=== PATIENT | male | born 1965 | race Caucasian/White ===

== ENCOUNTER 2021-01-27 09:13 | Emergency (ER) | payer BC ==
[~2021-01-27] VITALS: Ht 182.9 cm; Wt 125.0 kg
[2021-01-27 09:34] VITALS: BP 140/113
[2021-01-27 10:22] LABS: CALCIUM 8.7 mg/dL (8.5-10.1); CREATININE 0.9 mg/dL (0.7-1.3); GFR 87.3; POTASSIUM 4.3 mmol/L (3.5-5.1)
[2021-01-27 10:26] LABS: BASO # 0.1 x10^3/uL (0.0-0.2); BASO % 1 % (0-3); EOS # 0.1 x10^3/uL (0.0-0.7); EOS % 2 % (0-3); HEMATOCRIT 45.2 % (39.0-53.0); HEMOGLOBIN 15.4 g/dL (13.0-17.5); LYMPH # 1.9 x10^3/uL (1.0-4.8); LYMPH % 29 % (24-48); MEAN CORPUSCULAR HEMOGLOBIN 30 pg (25-35); MEAN CORPUSCULAR HGB CONC 34 g/dL (31-37); MEAN CORPUSCULAR VOLUME 89 fL (79-100); MONO # 0.5 x10^3/uL (0.0-1.1); MONO % 8 % (0-9); NEUT % 61 % (31-73); PLATELET COUNT 297 x10^3/uL (140-400); RED BLOOD COUNT 5.09 x10^6/uL (4.30-5.70); RED CELL DISTRIBUTION WIDTH 13.8 % (11.5-14.5); WHITE BLOOD COUNT 6.5 x10^3/uL (4.0-11.0)
[2021-01-27 10:28] LABS: ALBUMIN 3.9 g/dL (3.4-5.0); ALBUMIN/GLOBULIN RATIO 1.1 (1.0-1.7); TOTAL BILIRUBIN 0.5 mg/dL (0.2-1.0); TOTAL PROTEIN 7.3 g/dL (6.4-8.2)
--- NOTE | 2021-01-27 10:43 | PHYS DOC ---
Past History Past Medical History: High Cholesterol, Hypertension Adult General Chief Complaint Chief Complaint: CHEST PAIN HPI HPI Patient is a 56-year-old male presenting for chest pain. This is been a chronic problem but he has noticed it with increased frequency over past 2 weeks without any known inciting event, trauma, exposure or ingestion. Physical exertion makes worse. Patient reports whenever he is trying to lift heavy objects or walk at an incline he experiences sharp substernal chest pain that radiates to bilateral neck and left shoulder. Reports he has never had issues with physical exertion but reports that this is happening more frequently over past 2 weeks. States it got so bad that he typically has to stop and catch his breath when walking up an incline or walking upstairs which he has never done in the past. No prior cardiovascular history but admits taking medications for high blood pressure and hypercholesterol, does state that he recently moved from [place] and has been out of his medications recently. No prior stress test or heart cath. Does not smoke but has positive family history of early cardiac disease in his father. No hemoptysis, fever, recent sick contacts, long distance travel, ripping or tearing sensation in chest Review of Systems Review of Systems Fourteen body systems of review of systems have been reviewed. See HPI for pe rtinent positives and negative responses, other ulrich all other systems are negative, non-pertinent or non-contributory Physical Exam Physical Exam Constitutional: Well developed, well nourished, no acute distress, non-toxic appearance. HENT: Normocephalic, atraumatic, bilateral external ears normal, oropharynx moist, no oral exudates, nose normal. Eyes: PERRLA, EOMI, conjunctiva normal, no discharge. Neck: Normal range of motion, no tenderness, supple, no stridor. Cardiovascular: Heart rate regular, sinus rhythm, no murmurs rubs or gallops Lungs & Thorax: Bilateral breath sounds clear to auscultation Abdomen: Bowel sounds normal, soft, no tenderness, no masses, no pulsatile masses. Nonsurgical abdomen, no peritoneal signs Skin: Warm, dry, no erythema, no rash. Back: No tenderness, no CVA tenderness. Extremities: No tenderness, no cyanosis, no clubbing, ROM intact, no edema. Neurologic: Alert and oriented X 3, grossly normal motor & sensory function, no focal deficits noted. Psychologic: Affect normal, judgement normal, mood normal. Current Patient Data Vital Signs Vital Signs Date Time Temp Pulse Resp B/P (MAP) Pulse Ox O2 Delivery O2 Flow Rate FiO2 01/27/21 09:34 97.9 75 18 140/113 97 Vital Signs Date Time Temp Pulse Resp B/P (MAP) Pulse Ox O2 Delivery O2 Flow Rate FiO2 01/27/21 09:34 97.9 75 18 140/113 97 Lab Results Laboratory Tests Test 01/27/21 09:57 01/27/21 12:34 White Blood Count 6.5 x10^3/uL Red Blood Count 5.09 x10^6/uL Hemoglobin 15.4 g/dL Hematocrit 45.2 % Mean Corpuscular Volume 89 fL Mean Corpuscular Hemoglobin 30 pg Mean Corpuscular Hemoglobin Concent 34 g/dL Red Cell Distribution Width 13.8 % Platelet Count 297 x10^3/uL Neutrophils (%) (Auto) 61 % Lymphocytes (%) (Auto) 29 % Monocytes (%) (Auto) 8 % Eosinophils (%) (Auto) 2 % Basophils (%) (Auto) 1 % Neutrophils # (Auto) 4.0 x10^3uL Lymphocytes # (Auto) 1.9 x10^3/uL Monocytes # (Auto) 0.5 x10^3/uL Eosinophils # (Auto) 0.1 x10^3/uL Basophils # (Auto) 0.1 x10^3/uL Sodium Level 139 mmol/L Potassium Level 4.3 mmol/L Chloride Level 104 mmol/L Carbon Dioxide Level 27 mmol/L Anion Gap 8 Blood Urea Nitrogen 12 mg/dL Creatinine 0.9 mg/dL Estimated GFR (Cockcroft-Gault) 87.3 BUN/Creatinine Ratio 13 Glucose Level 125 mg/dL Calcium Level 8.7 mg/dL Total Bilirubin 0.5 mg/dL Aspartate Amino Transf (AST/SGOT) 26 U/L Alanine Aminotransferase (ALT/SGPT) 46 U/L Alkaline Phosphatase 97 U/L Troponin I Quantitative < 0.017 ng/mL < 0.017 ng/mL Total Protein 7.3 g/dL Albumin 3.9 g/dL Albumin/Globulin Ratio 1.1 Current Medications Medications (Trade) Dose Ordered Sig/Rich Route PRN Reason Start Time Stop Time Status Last Admin Dose Admin Aspirin (Aspirin Chewable) 324 mg 1X ONCE PO 8/16/21 10:45 01/27/21 11:12 DC 01/27/21 10:45 EKG EKG EKG ordered and interpreted by myself at 0920 hrs. as sinus rhythm at 72 bpm, unremarkable intervals, no axis deviation, no acute ischemic findings, no STEMI Radiology/Procedures Radiology/Procedures XR CHEST 1V CLINICAL INDICATIONS: Reason: chest discomfort COMPARISON: None available. Findings: No acute lung infiltrate or pleural effusion or pulmonary edema or lung mass or pneumothorax is seen. The heart size, pulmonary vasculature, mediastinum and both josue are unremarkable. IMPRESSION: No acute radiographic abnormality is seen. Electronically signed by: Lucien Vazquez MD (01/27/2021 10:57 AM) [id number] Heart Score C/O Chest Pain: Yes HEART Score for Chest Pain: HEART Score for Chest Pain Response (Comments) Value History Highly Suspicious 2 ECG Normal 0 Age >45 - < 65 1 Risk Factors >3 Risk Factors or Hx CAD 2 Troponin < Normal Limit 0 Total 5 Risk Factors: Risk Factors: DM, Current or recent (<one month) smoker, HTN, HLP, family history of CAD, obesity. Risk Scores: Risk Factors: DM, Current or recent (<one month) smoker, HTN, HLP, family history of CAD, obesity. Course & Med Decision Making Course & Med Decision Making Vitals stable. HPI concerning for angina that is worsening with increased frequency. Physical exam and comprehensive ER work-up nonconcerning for any immediate emergent or surgical issues I reviewed heart score with patient. He has no PCP or local pole maker [place] I discussed need for further provocative testing and disclosed my concern that this would not happen in a timely manner I contacted [facility] cardiology group and reviewed case. They agreed patient was high risk given lack of establish PCP and unrealistic follow- up and short-term and so, it was recommended he be transferred for admission and further provocative cardiac testing I updated patient on said discussion with pole maker and he was amenable. Hospitalist contacted and patient was excepted for transfer. All questions and concerns addressed prior to hospital transfer to [facility] for admission Dragon Disclaimer Dragon Disclaimer This electronic medical record was generated, in whole or in part, using a voice recognition dictation system. Departure Departure: Impression: Primary Impression: Chest pain Additional Impression: Stable angina Disposition: 02 [facility] Condition: STABLE Referrals: PCP,NO (PCP) Problem Qualifiers CHANTEL CHAVARRIA DO Jan 27, 2021 10:43
[2021-01-27] MEDS ORDERED: ASPIRIN CHEWABLE 81 MG TABLET. PO ONE (10:45)
--- NOTE | 2021-01-27 10:59 | RAD ---
XR CHEST 1V CLINICAL INDICATIONS: Reason: chest discomfort COMPARISON: None available. Findings: No acute lung infiltrate or pleural effusion or pulmonary edema or lung mass or pneumothora x is seen. The heart size, pulmonary vasculature, mediastinum and both josue are unremarkable. IMPRESSION: No acute radiographic abnormality is seen. Electronically signed by: Lucien Vazquez MD (01/27/2021 10:57 AM) [id number]
--- NOTE | 2021-01-27 11:29 | EKG ---
[address] [address] Test Date: 2021-01-27 Test Time: 09:15:19 Pat Name: CRISTOPHER RAMOSSantanaThuy Department: Room: Gender: M Consumer Banker: : 1965 Requested By: CHANTEL CHAVARRIA Order Number: [id number] Reading MD: Measurements Intervals [place] Rate: 72 P: -26 SC: 156 QRS: 19 QRSD: 88 T: 28 QT: 384 QTc: 422 Interpretive Statements SINUS RHYTHM NORMAL ECG RI6.02 No previous ECG available for comparison
== END 2021-01-27 14:51 | disposition short-term general hospital (02) ==
LOC: ER 09:13
DX: R07.89 Other chest pain (principal); I20.8 Other forms of angina pectoris; E78.5 Hyperlipidemia, unspecified; I10 Essential (primary) hypertension
CPT/HCPCS: 36415; 71045; 80053; 84484; 85025; 93005; 99285-25

== ENCOUNTER → 2021-08-26 | Outpatient (CLI) | payer BC, OTHER ==
--- NOTE | 2021-08-26 17:28 | RAD ---
EXAM: Abdomen and pelvis CT without intravenous contrast. HISTORY: Right flank pain. TECHNIQUE: Computed tomographic images of the abdomen and pelvis were obtained without contrast. Mult iplanar reformatting was performed. *One or more of the following individualized dose reduction techniques were utilized for this examina tion: 1. Automated exposure control. 2. Adjustment of the mA and/or kV according to patient size. 3. Use of iterative reconstruction technique. COMPARISON: None. FINDINGS: Evaluation of the lower thorax demonstrates no infiltrate or pleural effusion. The heart is normal in size. No hepatic lesion is seen. The gallbladder, pancreas, spleen and adrenal glands are unremarkable. There is a 1 mm nonobstructing stone within the lower pole the left kidney. There is no hydronephrosis. The bladder wall is mildly thickened. The prostate is mildly enlarged. The appendix is unremarkable. There is distal colonic diverticulosis. There is no diverticulitis. The aorta is normal in caliber. There is no lymphadenopathy. There is no acute or suspicious osseous fin ding. There is degenerative change involving the lumbar spine, primarily at the upper lumbar levels. IMPRESSION: 1. Mild bladder wall thickening, greater than expected for bladder volume and possibly due to cystiti s or chronic outlet obstruction given prominent prostate size. 2. Punctate nonobstructing left renal stone. 3. Distal colonic diverticulosis. Electronically signed by: Anika Gutierrez MD (08/26/2021 5:26 PM) [id number]
== END ==
LOC: CT 13:09
PROVIDERS: ATTEND Family Medicine
DX: N20.0 Calculus of kidney (principal); K57.30 Diverticulosis of large intestine without perforation or abscess without bleeding; N40.0 Benign prostatic hyperplasia without lower urinary tract symptoms
CPT/HCPCS: 74176